=== PATIENT | female | born 1940 | race African-American/Black ===

== ENCOUNTER 2017-06-24 07:46 | Inpatient (IN) | payer MEDICARE, MEDICAID ==
--- NOTE | 2017-06-20 12:18 | HP ---
DATE OF : 1940 ATTENDING PHYSICIAN: Dr. Jaycob Ventura HISTORY OF PRESENT ILLNESS: The patient is a 77-year-old female in recently good health who was rece ntly seen in our office for 5 months of progressive neck pain and right arm pain. She is not having any myelopathic symptoms at this time. She was treated with physical therapy and some superficial in jections without any lasting relief. Her most recent MRI shows severe degenerative cervical disease and meaningful spinal cord compression at C5-C6, C6-C7. Dr. Ventura and the patient talked at [facility] about C5-C6 and C6-C7 ACDF. The patient understands risks and benefits and wishes to proceed. PAST MEDICAL HISTORY: Hypertension, gastroesophageal reflux disease, neck pain. PAST SURGICAL HISTORY: The patient denies any prior surgeries. FAMILY HISTORY: Noncontributory. SOCIAL HISTORY: The patient does not smoke, drink or use any drugs. She is currently retired. ALLERGIES: She has no known drug allergies. CURRENT MEDICATIONS LIST: Hydralazine, Zanaflex, vitamin D, Biotin, Lasix, pravastatin, lisinopril, pantoprazole, VESIcare. REVIEW OF SYSTEMS: Per HPI. PHYSICAL EXAMINATION: GENERAL: The patient is sitting comfortably in a chair, no acute distress. HEENT: Head is normocephalic, atraumatic. NECK: Nontender to palpation. Free active range of motion, no meningismus or nuchal rigidity. CARDIOVASCULAR: Regular rate and rhythm. LUNGS: The patient is breathing comfortable, no evidence of dyspnea. MUSCULOSKELETAL: Good muscle tone bilateral upper and lower extremities. NEUROLOGIC: No focal motor weakness, no reflex asymmetry. NEURO: Alert and oriented x4. Steady gait. Normal cranial nerve exam. ASSESSMENT AND PLAN: A C5-6, C6-7 ACDF. The patient understands risks, benefits, and alternatives a nd wishes to proceed.
[2017-06-21 13:40] VITALS: BMI 38.0
[2017-06-24] MEDS ORDERED: CEFAZOLIN/Water 2 GM/20 ML SYRINGE ONE (08:16)
[2017-06-24 08:26] LABS: #Eosinphils 0.1 thou/uL (0.0-0.7); #Lymphocytes 1.6 thou/uL (1.20-3.40); #Monocytes 0.4 thou/uL (0.11-0.59); #Neutrophils 2.4 thou/uL (1.40-6.50); %Basophils 0.5 % (0.0-1.0); %Eosinophils 1.9 % (0.0-10.0); %Lymphocytes 35.9 % (21.0-51.0); %Monocytes 9.2 % (0.0-10.0); %Neutrophils 52.5 % (42.0-75.0); Hemoglobin 12.3 g/dL (12.0-16.0); Mean Corpuscular HGB CONC 30.6 g/dL (32.0-36.0); Mean Corpuscular Hemoglobin 29.2 pg (27.0-31.0); Mean Corpuscular Volume 95.2 fl (81.0-99.0); Mean Platelet Volume 6.5 fL (7.4-10.4); Platelet Count 301 thou/uL (130-400); RBC Distribution Width 11.8 % (11.5-14.5); Red Blood Cell (RBC) Count 4.23 mill/uL (4.20-5.40); White Blood Cell (WBC) Count 4.6 thou/uL (4.8-10.8)
[2017-06-24 08:56] LABS: Anion Gap 12 mmol/L (10-20); BUN (Urea Nitrogen) 21 mg/dL (9.8-20.1); Calc. Creatinine Clearance 72 mL/min (70-130); Carbon Dioxide 30 mmol/L (23-31); Chloride 103 mmol/L (98-107); Estimated GFR-MDRD 67; Glucose 107 mg/dL (83-110); Potassium 3.5 mmol/L (3.5-5.1); Sodium 141 mmol/L (136-145)
[2017-06-24] MEDS ORDERED: Sodium Chloride 0.9% 10 ML ONE (09:56)
[2017-06-24] MEDS ORDERED: Fentanyl 250 MCG/5 ML VIAL ONE ×2 (10:07→12:02)
[2017-06-24] MEDS ORDERED: Midazolam HCl 2 mg/2 ml Vial ONE (10:07)
[2017-06-24] MEDS ORDERED: Promethazine HCl 25 MG/ML VIAL SLOW IVP PRN (11:33)
[2017-06-24] MEDS ORDERED: Ondansetron HCl/PF 4 MG/2 ML Vial IVP PRN ×2 (11:33→11:54)
--- NOTE | 2017-06-24 11:49 | OP ---
DATE OF PROCEDURE: 06/24/2017 SURGEON: Jaycob Ventura M.D. APPLICATION ANALYST: EYAD Gallegos PROCEDURE: Anterior cervical discectomy C4-5 and C5-6, interbody arthrodesis, intravertebral biomech anical device, local morselized autograft, demineralized bone matrix, anterior titanium instrumentati on C4-5 and C5-6. PROCEDURE IN DETAIL: The patient was brought to the operating room, intubated. She was positioned s upine in modest extension on a gel-filled donut. Incision was made in the right precervical area and dissecting medial sternocleidomastoid muscle, identified the anterior cervical spine and our level w as confirmed by x-ray. We debrided anterior osteophytes, placed distraction across the disc spaces, and using the operating microscope and microdissection techniques, completely decompressed the intrav ertebral discs and the completely decompressed neural elements. The bony endplates were then decorti cated for the purpose of arthrodesis and appropriately sized intravertebral biomechanical PEEK device was brought into the field, filled with demineralized bone matrix and local morselized autograft, an d tapped into place securely at C4-5 and C5-6. Next, an anterior plate was brought in the field and secured to C4, C5 and C6 using two 14 mm screws at each level. The wound was then extensively irriga august, immaculate hemostasis was secured, and the wound was closed in anatomic layers over a drain.
[2017-06-24] MEDS ORDERED: Promethazine 25 MG TAB PO PRN (11:54)
[2017-06-24] MEDS ORDERED: diphenhydrAMINE 25 MG CAP PO PRN (11:54)
[2017-06-24] MEDS ORDERED: Milk Of Magnesia 30 ML UDCUP PO PRN (11:54)
[2017-06-24] MEDS ORDERED: HYDROcodone/Acetaminophen 7.5/325 mg Tablet PO PRN (11:54)
[2017-06-24] MEDS ORDERED: Promethazine HCl 12.5 MG SUPP PR PRN (11:54)
[2017-06-24] MEDS ORDERED: traMADol HCl 50 MG TAB PO PRN ×2 (11:54)
[2017-06-24] MEDS ORDERED: tiZANidine HCl 4 MG TAB PO PRN (11:54)
[2017-06-24] MEDS ORDERED: Mag-Al 1200 mg/1200 mg/30 ML UDCUP PO PRN (11:54)
[2017-06-24] MEDS ORDERED: Promethazine HCl 25 MG/ML VIAL IM PRN (11:54)
[2017-06-24] MEDS ORDERED: diphenhydrAMINE 50 MG/ML VIAL IVP PRN (11:54)
[2017-06-24] MEDS ORDERED: Morphine 4 MG/ML VIAL SLOW IVP PRN (12:47)
[2017-06-24] MEDS ORDERED: Acetaminophen 500 MG TAB PO PRN (12:55)
[2017-06-24] MEDS ORDERED: Furosemide 20 MG TAB PO PRN (12:56)
[2017-06-24] MEDS: Sodium Chloride 0.9% 1,000 ML IV SCH (13:10)
[2017-06-24] MEDS ORDERED: CEFAZOLIN/Water 2 GM/20 ML SYRINGE SLOW IVP SCH (14:00)
[2017-06-24] MEDS ORDERED: Glycopyrrolate 0.2 MG/ML 5 ML SYRINGE ONE (14:48)
[2017-06-24] MEDS ORDERED: Ondansetron HCl/PF 4 MG/2 ML Vial ONE (14:48)
[2017-06-24] MEDS ORDERED: Ketorolac Tromethamine 30 MG/ML VIAL ONE (14:48)
[2017-06-24] MEDS ORDERED: Propofol 200 MG/20 ML VIAL ONE (14:48)
[2017-06-24] MEDS ORDERED: Dexamethasone 20 MG/5 ML VIAL ONE (14:48)
[2017-06-24] MEDS ORDERED: Lidocaine 1% PF 5 ML VIAL ONE (14:48)
[2017-06-24] MEDS ORDERED: hydrALAZINE 20 MG/ML VIAL SLOW IVP PRN (15:28)
[2017-06-24] MEDS ORDERED: Morphine 5 MG/ML SYRINGE SLOW IVP PRN ×2 (16:30)
[2017-06-24] MEDS: CEFAZOLIN/Water 2 GM/20 ML SYRINGE SLOW IVP SCH (16:33)
--- NOTE | 2017-06-24 20:05 | EKG ---
Test Reason : PREOP Blood Pressure : / mmHG Vent. Rate : 060 BPM Atrial Rate : 060 BPM P-R Int : 170 ms QRS Dur : 096 ms QT Int : 448 ms P-R-T Axes : 066 057 058 degrees QTc Int : 448 ms Normal sinus rhythm Nonspecific T wave abnormality Abnormal ECG No previous ECGs available Confirmed by CHAPIS PURCELL, DR. Olvera ([id number]) on 06/24/2017 8:04:50 PM Referred By: ZENOBIA Confirmed By:DR. May NATION MD
[2017-06-24] MEDS ORDERED: tiZANidine HCl 4 MG TAB PO SCH (21:00)
[2017-06-24] MEDS: TROSPIUM 20 MG TABLET PO SCH (22:13)
[2017-06-24] MEDS: Ketotifen Fumarate 0.025% Ophth Soln 5 ml Bottle EA EYE SCH (22:13)
[2017-06-24] MEDS ORDERED: hydrALAZINE 10 MG TAB PO SCH (22:30)
[2017-06-25] MEDS: CEFAZOLIN/Water 2 GM/20 ML SYRINGE SLOW IVP SCH ×2 (00:09→08:23)
[2017-06-25] MEDS: HYDROcodone/Acetaminophen 7.5/325 mg Tablet PO PRN ×2 (00:19→08:21)
[2017-06-25] MEDS: Sodium Chloride 0.9% 1,000 ML IV SCH (03:21)
[2017-06-25 08:02] VITALS: TEMP 98.1
[2017-06-25 08:22] VITALS: BP 162/78
[2017-06-25] MEDS ORDERED: Lisinopril/Hydrochlorothiazide 20 mg/12.5 mg Tablet PO SCH (09:00)
[2017-06-25] MEDS ORDERED: hydrALAZINE 10 MG TAB PO SCH ×2 (09:00)
[2017-06-25] MEDS ORDERED: Atorvastatin Calcium 20 MG TAB PO SCH (09:00)
[2017-06-25] MEDS: Ketotifen Fumarate 0.025% Ophth Soln 5 ml Bottle EA EYE SCH (09:19)
[2017-06-25] MEDS: TROSPIUM 20 MG TABLET PO SCH (09:21)
== END 2017-06-25 09:44 | disposition home or self-care (01) | DRG 473 ==
LOC: SURG A 07:46 → EDSTATUS 11:52 → 3SE 13:51
PROVIDERS: ADMIT Neurological Surgery; ATTEND Neurological Surgery
PROC: 0RG20A0 Fusion of 2 or more Cervical Vertebral Joints with Interbody Fusion Device, Anterior Approach, Anterior Column, Open Approach (ICD-10-PCS; principal; 2017-06-24)
PROC: 0RB30ZZ Excision of Cervical Vertebral Disc, Open Approach (ICD-10-PCS; 2017-06-24)
DX: M50.321 Other cervical disc degeneration at C4-C5 level (principal); I10 Essential (primary) hypertension; K21.9 Gastro-esophageal reflux disease without esophagitis; Z79.899 Other long term (current) drug therapy
CPT/HCPCS: 36415; 76001; 80048; 85025; 93005; 93010; J2270; A4216; C1713; C1776; J0360; J1100; J1885; J2001; J2250; J2405; J2704; J3010; J3490

== ENCOUNTER 2018-05-27 06:42 | Day surgery (SDC) | payer MEDICARE, MEDICAID ==
[2018-05-26 16:11] VITALS: BMI 36.6
[2018-05-27 07:42] VITALS: BP 174/84; TEMP 98
[2018-05-27] MEDS ORDERED: Iopamidol-M 300 61% 15 ML VIAL ONE (10:02)
--- NOTE | 2018-05-27 10:03 | RAD ---
CERVICAL MYELOGRAM: HISTORY: Cervical radiculopathy. Cervical fusion. COMPARISON: None. EXPOSURE: 0.6 minutes. 81.3 Gy per m2. FINDINGS: Initial two-view data analytics chief scientist lumbar spine radiograph demonstrates five lumbar type vertebral bodies. There is vacuum disk phenomenon and severe degenerative change at L4-L5. Hypertrophic changes in the post erior elements at L4-L5 and L5-S1. CERVICAL SPINE TWO VIEWS: Anterior fusion plate with transvertebral body screw at C4, C5, and C6. N o perihardware lucency. Disk prostheses at C4-C5 and C5-C6. No prevertebral soft tissue swelling. Successful lumbar puncture for cervical myelogram. A total of 9 mL of Isovue-M 300 contrast was admi nistered intrathecally. No immediate or post procedure complications. TECHNIQUE: Consent obtained to perform a lumbar puncture for intrathecal contrast administration. The L2-L3 lev el was deemed appropriate. The skin was prepped and draped in a sterile fashion. Lidocaine 1% buffe red with sodium bicarbonate was used for local anesthesia. Under fluoroscopic guidance, a 22 gauge s paige needle was advanced into the CSF space. The inner stylet was removed. There was prompt flow o f clear CSF into the hub of the needle. Via a short tubing catheter, a total of 9 mL of Isovue-M 300 contrast was administered intrathecally. The patient tolerated the procedure well. No immediate or post procedure complications. IMPRESSION: Successful cervical myelogram. POS: [facility]
--- NOTE | 2018-05-27 10:54 | CT ---
CT CERVICAL SPINE POST MYELOGRAM: HISTORY: Cervical fusion. Cervical radiculopathy. COMPARISON: None. TECHNIQUE: A post myelogram cervical spine CT is performed in the axial plane. Reformatted images are submitted for interpretation. FINDINGS: There is an anterior fusion plate with a transvertebral body screw at C3, C4, and C5. No perihardwar e lucency. There is a disk prosthesis at C4-C5 and at C5-C6. On the coronal reformatted images, there is sclerosis involving the articulation of the left lateral mass of C1 and C2. The odontoid process is intact. Sagittal reformatted images demonstrate 1.7 mm of anterolisthesis of C3 upon C4. Coronal reformatted images demonstrate the left-sided screw at C4 to traverse the superior margin of C4 and possibly protrude into the C3-C4 disk space. Soft tissue neck structures are unremarkable. Upper mediastinum and lung apices are also unremarkable. C2-C3: No significant central canal stenosis. The neural foramina are patent. C3-C4: There is a broad-based disk osteophyte complex that abuts the thecal sac. Mild central canal stenosis. Mild to moderate right foraminal narrowing due to uncovertebral hypertrophy as well as fa cet hypertrophy. Left neural foramen is patent. C4-C5: Broad-based osteophyte complex abuts the thecal sac. Mild deformity of the midline cord. Mi ld to moderate central canal stenosis. Mild bilateral foraminal narrowing due to uncovertebral hyper trophy. C5-C6: Broad-based osteophyte complex abuts the thecal sac. No significant central canal stenosis. Right and left neural foramen are minimally narrowed due to uncovertebral hypertrophy. C6-C7: No significant disk osteophyte complex. No significant central canal stenosis. The right ne ural foramen is patent. Moderate left foraminal narrowing due to uncovertebral hypertrophy. C7-T1: No significant central canal stenosis. The neural foramina are patent. IMPRESSION: 1. Cervical fusion hardware as above. The left screw at C4 does appear to traverse the superior end plate of C4 and may extend into the C3-C4 disk space. 2. Varying degrees of central canal stenosis and neural foraminal narrowing, as detailed above. POS: [facility]
== END 2018-05-27 10:50 | disposition home or self-care (01) ==
LOC: RAD 06:42
PROVIDERS: ATTEND Neurological Surgery
PROC: B00B1ZZ Plain Radiography of Spinal Cord using Low Osmolar Contrast (ICD-10-PCS; principal; 2018-05-27)
DX: M54.12 Radiculopathy, cervical region (principal); M48.02 Spinal stenosis, cervical region; Z98.1 Arthrodesis status; Z79.899 Other long term (current) drug therapy
CPT/HCPCS: 62302; 72126; Q9967

== ENCOUNTER 2019-04-17 07:35 | Day surgery (SDC) | payer MEDICARE, MEDICAID ==
[2019-04-17 08:05] VITALS: BMI 38.6
--- NOTE | 2019-04-17 09:08 | RAD ---
CERVICAL SPINE SERIES 3 VIEWS WITH FLEXION AND EXTENSION: Date: 04/17/2019 HISTORY: Follow-up of surgery. FINDINGS: The patient has undergone anterior cervical fusion. There has been placement of plate and screws exte nding from C4 to C6. Markers of disc implants are within the confines of the disc level. No abnormal motion of the flexion or extension views. Arthritic changes of the remainder of the disc levels and d egenerative facet changes also noted. IMPRESSION: Stable postop change. POS: [facility]
--- NOTE | 2019-04-17 10:02 | CT ---
CERVICAL SPINE CT MYELOGRAM: DATE: 04/17/2019. COMPARISON: 05/27/2018. HISTORY: Cervical spine pain, worsening left-sided radiculopathy. TECHNIQUE: Following the intrathecal administration of iodinated contrast media, axial CT imaging obtained at 2. 5 mm intervals with coronal and sagittal reformatted imaging. FINDINGS: There is good opacification of the contents of the thecal sac. There is prominent degenerative change at the atlantoaxial interspace. Craniocervical and cervicothor acic junction appear intact. Anterior discectomy and fusion hardware is present at C4-5/C5-6. The occipital condyles and the dens demonstrate no acute findings. There is prominent degenerative change at the articulation of the left lateral mass of C1 and the bod y of C2 with complete loss of joint space. There is subchondral sclerosis and subchondral cystic change with prominent osteophyte formation posteriorly, anteriorly, and laterally, progressed since t he prior examination. Progression of degenerative change in this region causes worsening lateral stenosis with effacement of the ventral and lateral thecal sac on the left at the C1-2 level. C2-3: Stable minimal anterolisthesis. Mild bilateral facet hypertrophy. No significant central canal or neural foraminal stenosis. Mild anterior osteophyte formation. Small disc protrusion in right paracentral region noted. C3-4: There is disc space narrowing with anterior osteophyte formation and mild disc bulge. Mild bila teral facet hypertrophy. There is a questionable rounded area of mass effect in the foramen on the left and the foramen appears somewhat expanded. This may signify a disc fragment, tortuous vascular s tructure, such as a tortuous vertebral artery, or could represent nerve sheath tumor. Minimal disc bulge with no significant central canal stenosis. No neural foraminal stenosis is seen on the right. Mild right uncovertebral osteophyte formation. C4-5: There is disc space narrowing with posterior disc osteophyte complex partially effacing the romeo tral thecal sac with a mild degree of central canal stenosis. Bilateral facet and uncovertebral osteophyte formation causes a moderate degree of bilateral neural foraminal stenosis. C5-6: There is facet and uncovertebral osteophyte formation on the left causing a moderate/severe deg ree of left neural foraminal stenosis. No significant central canal or right neural foraminal stenosis. C6-7: There is prominent facet and uncovertebral osteophyte formation on the left with severe left ne ural foraminal stenosis. No significant central canal or right neural foraminal stenosis. C7-T1: Prominent bilateral facet hypertrophy, left greater than right. Moderate left and mild right n eural foraminal stenosis. No significant central canal stenosis. Imaged lung apices appear unremarkable. No worrisome lytic or blastic bone lesion. IMPRESSION: 1. Prominent multilevel cervical spine degenerative change, left greater than right, as documented a aditi. 2. Mild expansion of the neural foramen on the left at C3-4 as detailed above. Recommend further ass essment with MRI of the cervical spine and/or cervical spine CT angiogram. Transcribed Date/Time: 04/17/2019 10:59 AM
--- NOTE | 2019-04-17 11:26 | RAD ---
Cervical spine myelogram: 04/17/2019 HISTORY: Worsening left-sided radiculopathy FINDINGS: Informed consent obtained prior to the procedure. [employer] imaging of the cervical spine demonstrates anterior discectomy and fusion hardware at C4-5/C5-6 . There is disc space narrowing with anterior osteophyte formation at C2-3 and C3-4. At C6-7 and C7-T1 there is disc space narrowing and mild anterior osteophyte formation as well. There is multilev el mid cervical spine facet and uncovertebral osteophyte formation. [employer] imaging of the lumbar spine demonstrate prominent lower lumbar spine facet hypertrophy at L4-5 and L5-S1. There is disc space and with degenerative endplate change as well as anterior and posterior osteophyte formation at the L4-5 level. Skin overlying the lower lumbar spine was prepped and draped in normal sterile fashion. The skin was anesthetized at the L3 level with 1% buffered lidocaine. With intermittent fluoroscopic guidance, a 22-gauge spinal needle is advanced into the thecal sac and removal of the stylet yields clear cerebro spinal fluid. Approximately 10 cc of Isovue-300 was injected, outlining nerve roots of the cauda equina and filling the thecal sac. Needle was removed. Patient tolerated the procedure well. The patient's head was then tilted down to extend contrast media into the cervical region. IMPRESSION: Successful cervical spine myelogram as detailed above.
[2019-04-17] MEDS ORDERED: Iopamidol-M 300 61% 15 ML VIAL ONE (15:38)
== END 2019-04-17 10:10 | disposition home or self-care (01) ==
LOC: RAD 07:35
PROVIDERS: ATTEND Neurological Surgery
PROC: B01B1ZZ Fluoroscopy of Spinal Cord using Low Osmolar Contrast (ICD-10-PCS; principal; 2019-04-17)
DX: M50.10 Cervical disc disorder with radiculopathy, unspecified cervical region (principal); I10 Essential (primary) hypertension; G47.33 Obstructive sleep apnea (adult) (pediatric); M19.90 Unspecified osteoarthritis, unspecified site; Z79.899 Other long term (current) drug therapy; Z98.1 Arthrodesis status
CPT/HCPCS: 62302; 72040; 72126; Q9967